=== PATIENT | female | born 2000 | race Caucasian/White ===

== ENCOUNTER 2025-04-04 19:34 | Emergency (ER) | payer OTHER, SELFPAY ==
[2025-04-04 19:51] VITALS: BP 127/97; PULSE 97; TEMP 36.6; O2SAT 99; BMI 37.7
--- NOTE | 2025-04-04 20:05 | CT_ITS ---
The [address] [address] Patient Name: JUAN DIEGO CHICAS MRN: [id number] date: 2000 Sex: F Assigned Patient Location: ED.MAIN Current Patient Location: ER Accession/Order Number: [id number] Exam Date: 04/04/2025 21:36 Report Date: 04/04/2025 22:10 At the request of: GABRIELLE WALKER Procedure: CT abdomen pelvis w con CT Abdomen and Pelvis withcontrast TECHNIQUE: Axial imaging with 2-D reconstruction.100 cc of Omnipaque 300. The CT exam was performed using one or more the following dose reduction techniques: Automated exposure control, adjustment of the MA and/or Kv according to patient size, or use of the iterative reconstruction technique. COMPARISON: None History: Nausea vomiting and diarrhea. 2 days. LIMITATIONS: None LOWER THORAX Unremarkable LIVER: Unremarkable GALLBLADDER: No gallbladder abnormality identified. BILE DUCTS: No dilatation SPLEEN: Unremarkable PANCREAS: Unremarkable ADRENAL GLANDS: Unremarkable KIDNEYS:Unremarkable AORTA: No abdominal aortic aneurysm identified. RETROPERITONEUM: No significant retroperitoneal abnormalities identified. MESENTERY:Unremarkable STOMACH:Unremarkable SMALL BOWEL: The small bowel loops are nondistended. APPENDIX: The appendix is normal. COLON: Moderate burden of stool throughout the colon. URINARY BLADDER: Urinary bladder is unremarkable. REPRODUCTIVE SYSTEM: Reproductive structures are unremarkable. PNEUMOPERITONEUM: None PERITONEAL FLUID:None BONY STRUCTURES: Unremarkable ABDOMINAL WALL: Unremarkable CT/CT abdomen pelvis w con IMPRESSION: No acute findings. Moderate constipation. No bowel obstruction. No focal inflammatory changes. Impression dictated by: Juan Jacobs M.D. 04/04/2025 10:10 PM Dictation Location: [employer] Electronically authenticated by: [id number] Y Date: 04/04/2025 22:10
--- NOTE | 2025-04-04 20:06 | ED_ITS ---
Documented by User: Vannessa Pollock 04/04/25 21:58 HPI - Nausea/Vomiting/Diarrhea General Chief complaint: Nausea/Vomiting/Diarrhea Stated complaint: FEVER, NAUSEA, VOMITTING Time Seen by Provider: 04/04/25 20:01 Source: patient Mode of arrival: walk-in Limitations: no limitations History of Present Illness HPI Narrative: 24 year old female presents to the ED for chills, fever, N/V/D, abd pain. Onset was 2 days ago. Denies cough, congestion, urinary symptoms, CP, SOB. Denies ill contacts. Denies chance of . She is currently staying at a sober living facility. She has been sober for 62 days. Related Data Home Medications ?Medication ?Instructions ?Recorded ?Confirmed amitriptyline 100 mg tablet 900 mg PO DAILY 04/04/25 0 04/04/25 naltrexone microspheres 380 mg mg IM 04/04/25 intramuscular suspension,extended release (Vivitrol) Allergies Allergy/AdvReac Type Severity Reaction Status Date / Time azithromycin Allergy Mild Anaphylaxis Verified 04/04/25 19:55 levetiracetam (From [facility]) AdvReac Intermediate Anxiety Verified 04/04/25 19:55 Review of Systems ROS Constitutional Reports: fever and chills Ears, nose, mouth, and throat Denies: throat pain or nasal congestion Cardiovascular Denies: chest pain Respiratory Denies: shortness of breath or cough Gastrointestinal Reports: abdominal pain, nausea, vomiting and diarrhea Genitourinary Denies: painful urination, urinary frequency, urinary urgency or blood in urine Musculoskeletal Denies: back pain or neck pain Neurological Denies: headache or dizziness PFSH PFSH Social History Little interest or pleasure in doing things: not at all Feeling down, depressed, or hopeless: not at all Exam Constitutional Vital Signs, click to edit/add: Last Vital Signs Temp 97.9 F 04/04/25 19:51 Pulse 78 04/04/25 23:08 Resp 16 04/04/25 23:08 BP 98/62 04/04/25 23:08 Pulse Ox 98 04/04/25 23:08 O2 Del Method Room Air 04/04/25 19:51 Common normals: no apparent distress and oriented x3 General appearance: cooperative HENMT Common normals: moist oral mucous membranes Eye Common normals: conjunctivae normal and no scleral icterus Neck & C-Spine Common normals: supple Chest Chest: symmetrical chest wall rise Respiratory Common normals: normal respiratory effort and clear to auscultation bilaterally Effort & inspection: able to speak in complete sentences and symmetric chest movement Cardio Common normals: regular rate and regular rhythm GI Common normals: Normal to inspection, nondistended, normoactive bowel sounds present and soft to palpation Palpation: tender (Generalized) Neuro Common normals: oriented x3 and moves all extremities Sensorium/orientation: awake and alert Speech: speech normal Gait (neuro): normal gait Course Vital Signs Vital signs: Vital Signs Temperature 97.9 F 04/04/25 19:51 Pulse Rate 97 H 04/04/25 19:51 Respiratory Rate 18 04/04/25 19:51 Blood Pressure 127/97 H 04/04/25 19:51 Pulse Oximetry 99 04/04/25 19:51 Oxygen Delivery Method Room Air 04/04/25 19:51 Temperature 97.9 F 04/04/25 19:51 Pulse Rate 78 04/04/25 23:08 Respiratory Rate 16 04/04/25 23:08 Blood Pressure 98/62 04/04/25 23:08 Pulse Oximetry 98 04/04/25 23:08 Oxygen Delivery Method Room Air 04/04/25 19:51 MDM - Nausea/Vomiting/Diarrhea MDM Narrative Medical decision making narrative: Urinalysis showed evidence of infection; culture was pending. WBC count was unremarkable. CT scan was pending. Care was resumed to Dr. Main. See her dictation for further evaluation and treatment. Differential Diagnosis Differential diagnosis: Likely gastroenteritis and other (Viral illness, UTI, kidney stone) Medical Records Attestation: I reviewed the patient's medical records. Lab Data Attestation: I reviewed the patient's lab results. Labs: Lab Results 04/04/25 04/04/25 Range/Units 20:05 21:05 WBC 8.6 (4.0-11.0) 10^3/uL RBC 4.22 (4.20-5.40) 10^6/uL Hgb 12.2 (12.0-16.0) g/dL Hct 35.9 L (36.0-48.0) % MCV 85.1 (81.0-99.0) fL MCH 28.9 (26.7-34.0) pg MCHC 34.0 (29.9-35.2) g/dL RDW 13.7 (11.0-15.0) % Plt Count 415 (150-450) 10^3/uL MPV 9.9 (9.5-13.5) fL Neut % (Auto) 45.7 (43.0-75.0) % Lymph % (Auto) 40.2 (20.5-60.0) % Levy % (Auto) 9.1 (1.7-12.0) % Eos % (Auto) 4.2 (0.9-7.0) % Baso % (Auto) 0.6 (0.2-2.0) % Neut # (Auto) 3.9 (1.4-6.5) 10^3/uL Lymph # (Auto) 3.5 (1.2-3.8) 10^3/uL Levy # (Auto) 0.8 (0.3-0.8) 10^3/uL Eos # (Auto) 0.4 (0.0-0.7) 10^3/uL Baso # (Auto) 0.1 (0.0-0.1) 10^3/uL Abs Immat Gran (auto) 0.02 (0.00-0.03) 10^3/uL Imm/Tot Granulo (auto) 0.2 (0.0-0.5) % Sodium 142 (136-145) mmol/L Potassium 3.9 (3.5-5.1) mmol/L Chloride 107 (98-107) mmol/L Carbon Dioxide 29.7 (21.0-32.0) mmol/L Anion Gap 9.2 BUN 13.0 (7.0-18.0) mg/dL Creatinine 0.93 (0.55-1.02) mg/dL Est GFR ( Amer) >60 (>=60 mL/min/1.73m^2) Est GFR (Non-Af Amer) >60 (>=60 mL/min/1.73m^2) BUN/Creatinine Ratio 14.0 Glucose 87 (74-106) mg/dL Calcium 8.8 (8.5-10.1) mg/dL Total Bilirubin 0.3 (0.2-1.0) mg/dL AST 12 L (15-37) U/L ALT 27 (14-59) U/L Alkaline Phosphatase 60 (46-116) U/L Total Protein 7.0 (6.4-8.2) g/dL Albumin 3.4 (3.4-5.0) g/dL Globulin 3.6 g/dL Albumin/Globulin Ratio 0.9 Lipase 17.0 (16.0-77.0) U/L Urine Color Lt. yellow (YELLOW) Urine Clarity Clear (CLEAR) Urine pH 7.0 (5.0-9.0) Ur Specific [place] 1.020 (1.005-1.025) Urine Protein Negative (NEG/TRACE) mg/dL Urine Glucose (UA) Negative (NEGATIVE) mg/dL Urine Ketones Negative (NEGATIVE) mg/dL Urine Occult Blood Large A (NEGATIVE) Urine Nitrite Negative (NEGATIVE) Urine Bilirubin Negative (NEGATIVE) Urine Urobilinogen 0.2 (0.2-1.0) EU/dL Ur Leukocyte Esterase Trace A (NEGATIVE) Urine RBC 10-20 A (0-2) #/HPF Urine WBC 10-20 A (NONE SEEN) #/HPF Ur Squamous Epith Cells Many A (NONE/RARE) #/LPF Urine Crystals None seen (None Seen) #/HPF Urine Bacteria Large A (NONE SEEN) #/HPF Urine Casts None seen (NONE SEEN) #/LPF Urine Mucus Trace A (NONE SEEN) Ur Culture Indicated? [facility] [place] Urine HCG, Qual Negative (NEGATIVE) Discharge Plan Discharge Chief Complaint: Nausea/Vomiting/Diarrhea Clinical Impression: Nausea vomiting and diarrhea, UTI (urinary tract infection), Low back pain Patient Disposition: Home, Self-Care Time of Disposition Decision: 23:10 Condition: Good Prescriptions / Home Meds: No Action Vivitrol 380 mg suspension,extended rel recon IM amitriptyline 100 mg tablet 900 mg PO DAILY Print Language: Chilean Instructions: Urinary Tract Infection in Women (DC), Acute Low Back Pain (ED), Urinary Tract Infection in (ED) Referrals: Physician,Non-Staff, MD [Primary Care Provider] - 1 week Documented by User: Heydi Mian MD 04/04/25 23:16 HPI - Nausea/Vomiting/Diarrhea General Chief complaint: Nausea/Vomiting/Diarrhea Stated complaint: FEVER, NAUSEA, VOMITTING Time Seen by Provider: 04/04/25 20:01 Related Data Home Medications ?Medication ?Instructions ?Recorded ?Confirmed amitriptyline 100 mg tablet 900 mg PO DAILY 04/04/25 0 04/04/25 naltrexone microspheres 380 mg mg IM 04/04/25 intramuscular suspension,extended release (Vivitrol) Allergies Allergy/AdvReac Type Severity Reaction Status Date / Time azithromycin Allergy Mild Anaphylaxis Verified 04/04/25 19:55 levetiracetam (From [facility]) AdvReac Intermediate Anxiety Verified 04/04/25 19:55 PFSH PFSH Social History Little interest or pleasure in doing things: not at all Feeling down, depressed, or hopeless: not at all Exam Constitutional Vital Signs, click to edit/add: Last Vital Signs Temp 97.9 F 04/04/25 19:51 Pulse 78 04/04/25 23:08 Resp 16 04/04/25 23:08 BP 98/62 04/04/25 23:08 Pulse Ox 98 04/04/25 23:08 O2 Del Method Room Air 04/04/25 19:51 Course Vital Signs Vital signs: Vital Signs Temperature 97.9 F 04/04/25 19:51 Pulse Rate 97 H 04/04/25 19:51 Respiratory Rate 18 04/04/25 19:51 Blood Pressure 127/97 H 04/04/25 19:51 Pulse Oximetry 99 04/04/25 19:51 Oxygen Delivery Method Room Air 04/04/25 19:51 Temperature 97.9 F 04/04/25 19:51 Pulse Rate 78 04/04/25 23:08 Respiratory Rate 16 04/04/25 23:08 Blood Pressure 98/62 04/04/25 23:08 Pulse Oximetry 98 04/04/25 23:08 Oxygen Delivery Method Room Air 04/04/25 19:51 MDM - Nausea/Vomiting/Diarrhea MDM Narrative Medical decision making narrative: Urinalysis showed evidence of infection; culture was pending. WBC count was un remarkable. CT scan was pending. Care was resumed to Dr. Main. See her dictation for further evaluation and treatment. This patient was seen and evaluated in conjunction with the physician nutrition services assistant. She is currently at [facility] in sober living. She presents for back pain with fever with generalized abdominal pain, nausea vomiting and diarrhea. She states she gets frequent urinary tract infections. Reviewed and she was given IV fluids and Rocephin in the emergency department. CT scan is negative for acute findings. Urine is positive for infection. Culture is pending. The patient states that Keflex typically treats her urinary tract infections. She will be discharged to [facility] with a prescription for Keflex to use over the course of the next 7 days. The patient also requests a note to refrain from having to go to group therapy tomorrow because she states her back hurts and they have to sit for 12 hours during group. She was provided this at the time of discharge. She is otherwise well-appearing. She is drinking fluids and eating snacks without any nausea or vomiting or recurrent diarrhea. Lab Data Labs: Lab Results 04/04/25 04/04/25 Range/Units 20:05 21:05 WBC 8.6 (4.0-11.0) 10^3/uL RBC 4.22 (4.20-5.40) 10^6/uL Hgb 12.2 (12.0-16.0) g/dL Hct 35.9 L (36.0-48.0) % MCV 85.1 (81.0-99.0) fL MCH 28.9 (26.7-34.0) pg MCHC 34.0 (29.9-35.2) g/dL RDW 13.7 (11.0-15.0) % Plt Count 415 (150-450) 10^3/uL MPV 9.9 (9.5-13.5) fL Neut % (Auto) 45.7 (43.0-75.0) % Lymph % (Auto) 40.2 (20.5-60.0) % Levy % (Auto) 9.1 (1.7-12.0) % Eos % (Auto) 4.2 (0.9-7.0) % Baso % (Auto) 0.6 (0.2-2.0) % Neut # (Auto) 3.9 (1.4-6.5) 10^3/uL Lymph # (Auto) 3.5 (1.2-3.8) 10^3/uL Levy # (Auto) 0.8 (0.3-0.8) 10^3/uL Eos # (Auto) 0.4 (0.0-0.7) 10^3/uL Baso # (Auto) 0.1 (0.0-0.1) 10^3/uL Abs Immat Gran (auto) 0.02 (0.00-0.03) 10^3/uL Imm/Tot Granulo (auto) 0.2 (0.0-0.5) % Sodium 142 (136-145) mmol/L Potassium 3.9 (3.5-5.1) mmol/L Chloride 107 (98-107) mmol/L Carbon Dioxide 29.7 (21.0-32.0) mmol/L Anion Gap 9.2 BUN 13.0 (7.0-18.0) mg/dL Creatinine 0.93 (0.55-1.02) mg/dL Est GFR ( Amer) >60 (>=60 mL/min/1.73m^2) Est GFR (Non-Af Amer) >60 (>=60 mL/min/1.73m^2) BUN/Creatinine Ratio 14.0 Glucose 87 (74-106) mg/dL Calcium 8.8 (8.5-10.1) mg/dL Total Bilirubin 0.3 (0.2-1.0) mg/dL AST 12 L (15-37) U/L ALT 27 (14-59) U/L Alkaline Phosphatase 60 (46-116) U/L Total Protein 7.0 (6.4-8.2) g/dL Albumin 3.4 (3.4-5.0) g/dL Globulin 3.6 g/dL Albumin/Globulin Ratio 0.9 Lipase 17.0 (16.0-77.0) U/L Urine Color Lt. yellow (YELLOW) Urine Clarity Clear (CLEAR) Urine pH 7.0 (5.0-9.0) Ur Specific [place] 1.020 (1.005-1.025) Urine Protein Negative (NEG/TRACE) mg/dL Urine Glucose (UA) Negative (NEGATIVE) mg/dL Urine Ketones Negative (NEGATIVE) mg/dL Urine Occult Blood Large A (NEGATIVE) Urine Nitrite Negative (NEGATIVE) Urine Bilirubin Negative (NEGATIVE) Urine Urobilinogen 0.2 (0.2-1.0) EU/dL Ur Leukocyte Esterase Trace A (NEGATIVE) Urine RBC 10-20 A (0-2) #/HPF Urine WBC 10-20 A (NONE SEEN) #/HPF Ur Squamous Epith Cells Many A (NONE/RARE) #/LPF Urine Crystals None seen (None Seen) #/HPF Urine Bacteria Large A (NONE SEEN) #/HPF Urine Casts None seen (NONE SEEN) #/LPF Urine Mucus Trace A (NONE SEEN) Ur Culture Indicated? [facility] [place] Urine HCG, Qual Negative (NEGATIVE) Discharge Plan Discharge Chief Complaint: Nausea/Vomiting/Diarrhea Clinical Impression: Nausea vomiting and diarrhea, UTI (urinary tract infection), Low back pain Patient Disposition: Home, Self-Care Time of Disposition Decision: 23:10 Condition: Good Prescriptions / Home Meds: No Action Vivitrol 380 mg suspension,extended rel recon IM amitriptyline 100 mg tablet 900 mg PO DAILY Print Language: Chilean Instructions: Urinary Tract Infection in Women (DC), Acute Low Back Pain (ED), Urinary Tract Infection in (ED) Referrals: Physician,Non-Staff, MD [Primary Care Provider] - 1 week
[2025-04-04 21:19] LABS: Hematocrit 35.9 % (36.0-48.0); Hemoglobin 12.2 g/dL (12.0-16.0); Immature Granulocytes Abs Auto 0.02 10^3/uL (0.00-0.03); Immature Granulocytes Pct Auto 0.2 % (0.0-0.5); Lymphocytes Absolute Auto 3.5 10^3/uL (1.2-3.8); Mean Corpuscular HGB Conc 34.0 g/dL (29.9-35.2); Mean Corpuscular Hemoglobin 28.9 pg (26.7-34.0); Mean Corpuscular Volume 85.1 fL (81.0-99.0); Platelet Count 415 10^3/uL (150-450); Red Blood Count 4.22 10^6/uL (4.20-5.40); White Blood Count 8.6 10^3/uL (4.0-11.0)
[2025-04-04] MEDS: 0.9 % SODIUM CHLORIDE 1,000 ML 999 ML IV (21:25)
[2025-04-04 21:30] LABS: Glucose Urine UA NEGATIVE (NEGATIVE)
[2025-04-04 21:35] LABS: Alanine Aminotransferase 27 U/L (14-59); Albumin Globulin Ratio 0.9; Albumin Level 3.4 g/dL (3.4-5.0); Alkaline Phosphatase 60 U/L (46-116); Anion Gap 9.2; Aspartate Amino Transferase 12 U/L (15-37); Blood Urea Nitrogen 13.0 mg/dL (7.0-18.0); Calcium 8.8 mg/dL (8.5-10.1); Carbon Dioxide 29.7 mmol/L (21.0-32.0); Chloride 107 mmol/L (98-107); Estimated GFR (African America >60 (>=60 mL/min/1.73m^2); Estimated GFR (Non-African Ame >60 (>=60 mL/min/1.73m^2); Globulin 3.6 g/dL; Glucose 87 mg/dL (74-106); Lipase 17.0 U/L (16.0-77.0); Potassium 3.9 mmol/L (3.5-5.1); Sodium 142 mmol/L (136-145); Total Protein 7.0 g/dL (6.4-8.2)
[2025-04-04 21:37] LABS: HCG Qualitative Urine* NEGATIVE (NEGATIVE)
[2025-04-04 21:48] LABS: Cast Seen? NONE SEEN #/LPF (NONE SEEN); Crystals Seen? None Seen #/HPF (None Seen); Urine Culture Indicated YES-FRMC
[2025-04-04 23:08] VITALS: BP 98/62; PULSE 78; O2SAT 98
== END 2025-04-04 23:44 | disposition home or self-care (01) ==
PROVIDERS: Nurse Practitioner Family; Emergency Provider Emergency Medicine
DX: R11.2 Nausea with vomiting, unspecified (principal); R19.7 Diarrhea, unspecified; N39.0 Urinary tract infection, site not specified; M54.50 Low back pain, unspecified
CPT/HCPCS: 36415; 74177; 80053; 81001; 83690; 84703; 85025; 87086; 96361; 96365; 99285; J0696; Q9967

== ENCOUNTER 2025-04-16 16:08 | Emergency (ER) | payer OTHER, SELFPAY ==
[2025-04-16 16:14] VITALS: BP 128/84; PULSE 74; TEMP 37; O2SAT 98; BMI 35.3
[2025-04-16] MEDS: IBUPROFEN 600 MG TABLET PO (16:32)
--- NOTE | 2025-04-16 16:45 | XR_ITS ---
[place] [address] Patient Name: JUAN DIEGO CHICAS MRN: [id number] date: 2000 Sex: F Assigned Patient Location: ER Current Patient Location: ER Accession/Order Number: [id number] Exam Date: 04/16/2025 16:40 Report Date: 04/16/2025 17:27 At the request of: MARIELENA BRADY DO Procedure: XR ankle RT min 3V 3 views right ankle plain film COMPARISON: None HISTORY: Fell injuring right ankle ACUTE FINDINGS: None DEGENERATIVE CHANGE: Unremarkable SOFT TISSUE FINDINGS: Lateral soft tissue swelling JOINT EFFUSION: None POSTOP CHANGES: None BONE MINERALIZATION: Adequate XR/XR ankle RT min 3V IMPRESSION: No acute displaced fracture Impression dictated by: Juan Jacobs M.D. 04/16/2025 5:27 PM Dictation Location: [facility] Electronically authenticated by: [id number] Y Date: 04/16/2025 17:27
--- NOTE | 2025-04-16 17:32 | XR_ITS ---
[facility] [place] [id number] Patient Name: JUAN DIEGO CHICAS MRN: [id number] date: 2000 Sex: F Assigned Patient Location: ER Current Patient Location: ER Accession/Order Number: [id number] Exam Date: 04/16/2025 17:28 Report Date: 04/16/2025 17:49 At the request of: MARIELENA BRADY DO Procedure: XR foot RT min 3V 3 views right foot plain film COMPARISON:None HISTORY: Right ankle/foot injury ACUTE FINDINGS: None DEGENERATIVE CHANGE: Unremarkable SOFT TISSUE FINDINGS: Unremarkable JOINT EFFUSION: None POSTOP CHANGES: None BONE MINERALIZATION: Adequate XR/XR foot RT min 3V IMPRESSION: No acute findings. Impression dictated by: Juan Jacobs M.D. 04/16/2025 5:49 PM Dictation Location: [place] [address] Electronically authenticated by: [id number] Y Date: 04/16/2025 17:49
--- NOTE | 2025-04-17 07:10 | ED.GENADUL1 ---
HPI HPI - General Adult General Chief complaint: Extremity Injury, Lower Stated complaint: FALL Time Seen by Provider: 04/16/25 16:10 Source: patient Mode of arrival: walk-in Limitations: no limitations History of Present Illness HPI narrative: Patient is a 24-year-old female presenting to the emergency department for concerns of a right foot injury. Patient states she was playing kickball yesterday when she rolled her ankle. She has been having persistent pain since then. She states she still able to ambulate and bear weight, however it has become increasingly painful. Other than pain in the right ankle, she has no other complaints. She denies any other injuries. Related Data Home Medications ?Medication ?Instructions ?Recorded ?Confirmed amitriptyline 100 mg tablet 900 mg PO DAILY 04/04/25 04/04/25 naltrexone microspheres 380 mg mg IM 04/04/25 intramuscular suspension,extended release (Vivitrol) Allergies Allergy/AdvReac Type Severity Reaction Status Date / Time azithromycin Allergy Mild Anaphylaxis Verified 04/16/25 16:14 levetiracetam (From [facility]) AdvReac Intermediate Anxiety Verified 04/16/25 16:14 Opioid HPI Opioid Management Most Recent Opioid Data: Last Pain Scale 8 04/16/25, 16:32 Last MAR Pain Assessment 04/16/25, 16:32 Review of Systems ROS Status of ROS 10 or more systems reviewed and unremarkable except as noted in history and below PFSH PFSH Social History Little interest or pleasure in doing things: not at all Feeling down, depressed, or hopeless: not at all Exam Narrative Exam Narrative: CONSTITUTIONAL: Well-appearing, answering questions and following commands appropriately SKIN: Was warm and dry. EYES: Sclerae white. EARS, NOSE, THROAT: Moist oral mucosa. RESPIRATORY: Nonlabored respirations CARDIOVASCULAR: 2+ DP pulse on the right GASTROINTESTINAL: Abdomen is nondistended. MUSCULOSKELETAL: There is tenderness to palpation throughout the hindfoot. No tenderness at the medial or lateral malleoli. No tenderness at the base of the fifth metatarsal. Mild soft tissue swelling throughout the right foot and ankle. Full range of motion with dorsi/plantarflexion. Strength throughout all 5 toes of the right foot. No obvious deformities. NEUROLOGIC: Patient is awake and alert. Equal strength and sensation to light touch in the bilateral feet and ankle Constitutional Vital Signs, click to edit/add: Last Vital Signs Temp 98.6 F 04/16/25 16:14 Pulse 74 04/16/25 16:14 Resp 15 04/16/25 16:14 BP 128/84 04/16/25 16:14 Pulse Ox 98 04/16/25 16:14 O2 Del Method Room Air 04/16/25 16:14 Course Vital Signs Vital signs: Vital Signs Temperature 98.6 F 04/16/25 16:14 Pulse Rate 74 04/16/25 16:14 Respiratory Rate 15 04/16/25 16:14 Blood Pressure 128/84 04/16/25 16:14 Pulse Oximetry 98 04/16/25 16:14 Oxygen Delivery Method Room Air 04/16/25 16:14 Temperature 98.6 F 04/16/25 16:14 Pulse Rate 74 04/16/25 16:14 Respiratory Rate 15 04/16/25 16:14 Blood Pressure 128/84 04/16/25 16:14 Pulse Oximetry 98 04/16/25 16:14 Oxygen Delivery Method Room Air 04/16/25 16:14 Medical Decision Making [facility] Narrative Medical decision making narrative: Patient is a 24-year-old female presenting to the emergency department for evaluation of a right foot/ankle injury after rolling her ankle playing kickball yesterday. Her vitals are within normal limits. Her feet are neurovascularly intact with good distal strength/sensation/perfusion. Differential diagnosis includes ankle sprain, ankle/foot fracture, musculoskeletal strain. She has full range of motion throughout the foot/ankle, low concern for severe ligamentous injury. X-rays were obtained. She was given oral Motrin for pain. X-rays of the right foot and ankle independent reviewed and interpreted by myself and radiology demonstrated no acute osseous abnormalities. I do believe the patient is stable for discharge at this time. Patient's presentation is most likely consistent with an ankle sprain. They were instructed to follow up with her family doctor if her symptoms persist. Return precautions were given including any new or worsening symptoms. They were given crutches and her ankle was wrapped in an Leonardo bandage. Patient understands and agrees to the plan. FINAL IMPRESSION: #Acute right ankle sprain DISPOSITION: Discharged home CONDITION: Good Imaging Data left foot xray: Attestation: I personally reviewed and interpreted this imaging study as follows: Radiologist's impression: ITS Impressions Ankle X-Ray 04/16/25 16:45 IMPRESSION: No acute displaced fracture Impression dictated by: Juan Jacobs M.D. 04/16/2025 5:27 PM Dictation Location: [employer] Electronically authenticated by: [id number] Y Date: 04/16/2025 17:27 Foot X-Ray 04/16/25 17:32 IMPRESSION: No acute findings. Impression dictated by: Juan Jacobs M.D. 04/16/2025 5:49 PM Dictation Location: [facility] [facility] Electronically authenticated by: [id number] Y Date: 04/16/2025 17:49 Discharge Plan Discharge Chief Complaint: Extremity Injury, Lower Clinical Impression: Ankle sprain and strain Patient Disposition: Home, Self-Care Time of Disposition Decision: 18:03 Condition: Good Mode of Transportation: Private Vehicle Prescriptions / Home Meds: No Action Vivitrol 380 mg suspension,extended rel recon IM amitriptyline 100 mg tablet 900 mg PO DAILY Print Language: Somali Instructions: Ankle Sprain (ED) Referrals: Physician,Non-Staff, MD [Primary Care Provider] - 1 week Discharge Date/Time: 04/16/25 18:30
== END 2025-04-16 18:30 | disposition home or self-care (01) ==
PROVIDERS: Emergency Provider Student in an Organized Health Care Education/Training Program
DX: S96.911A Strain of unspecified muscle and tendon at ankle and foot level, right foot, initial encounter (principal); S93.401A Sprain of unspecified ligament of right ankle, initial encounter; X50.1XXA Overexertion from prolonged static or awkward postures, initial encounter; Y93.6A Activity, physical games generally associated with school recess, summer camp and children
CPT/HCPCS: 73610; 73630; 99284